=== PATIENT | female | born 1935 | race Caucasian/White ===

== ENCOUNTER 2023-08-11 23:07 | Emergency (ER) | payer MEDICARE, MEDICAID ==
[~2023-08-11 23:07] MED LIST: ATIVAN0.5 MG PO; CITALOPRAM10 MG PO; LEVAQUIN 5500 MG/TA1 PO; LEVAQUIN 750MG750 M1 PO; LISINOPRIL20 MG PO; OXY IR5 MG PO; PRILOSEC 20MG20 MG PO; ROXICODONE 55 MG/TAB PO; TYLENOL 325MG325 MG PO; ZOFRAN ODT4 MG PO; ZOVIRAX 800MG800 MG PO
[2023-08-11 23:09] VITALS: TEMP 99.3
[2023-08-12 01:15] VITALS: BP 172/80; PULSE 63
== END 2023-08-12 01:25 | disposition home or self-care (01) ==
LOC: COL.ER 23:07
DX: S09.90XA Unspecified injury of head, initial encounter (principal); S01.111A Laceration without foreign body of right eyelid and periocular area, initial encounter; W19.XXXA Unspecified fall, initial encounter; Y92.122 Bedroom in nursing home as the place of occurrence of the external cause